=== PATIENT | male | born 1990 | race Caucasian/White ===

== ENCOUNTER 2018-04-13 15:27 | Emergency (ER) | payer OTHER ==
[~2018-04-13] VITALS: Ht 180.3 cm; Wt 88.5 kg
[2018-04-13 15:27] VITALS: BP_SYST 120
[~2018-04-13 15:27] MED LIST: D-AMPHETAMINE SALT PO; [UNRECOGNIZED DRUG - CODE] PO
--- NOTE | 2018-04-13 15:30 | NUR ---
BROUGHT BACK TO BED #3 VIA WHEELCHAIR AND PLACED IN BED. TRIAGED. REPORT GIVEN TO LEIDA
[2018-04-13] MEDS ORDERED: KETOROLAC TROMETHAMINE 60 MG/2 ML VIAL IM ONE (16:00)
--- NOTE | 2018-04-13 16:16 | NUR ---
Leah yung in ED - 04/13/18 at 1734 by JUDAH patient arrived from home with c/o 8/10 pain with movement left knee pain x 2 weeks. no other complaint or injury at this time.
--- NOTE | 2018-04-13 16:16 | NUR ---
patient arrived from home with c/o 8/10 pain with movement left knee pain x 2 weeks. no other complaint or injury at this time.
--- NOTE | 2018-04-13 16:16 | NUR ---
ER MD at bedside examining patient.
--- NOTE | 2018-04-13 16:20 | NUR ---
sent to xray
--- NOTE | 2018-04-13 16:30 | NUR ---
Leah yung in ED - 04/13/18 at 1734 by JUDAH sent to [facility]
--- NOTE | 2018-04-13 17:24 | NUR ---
Note undone in EDM - 04/13/18 at 1734 by [email or web address] Patient given written and verbal discharge instructions and verbalizes understanding. ER discussed with patient the results and treatment provided. Patient in stable condition. ID arm band removed. IV catheter removed intact and dressing applied, no active bleeding. Rx of Motrin given. Patient educated on pain management and to follow up with PMD. Pain Scale 0/10. Opportunity for questions provided and answered. Medication side effect fact sheet provided.
[2018-04-13 17:35] VITALS: BP_SYST 130
--- NOTE | 2018-04-13 17:38 | NUR ---
Patient given written and verbal discharge instructions and verbalizes understanding. ER MD discussed with patient the results and treatment provided. Patient in stable condition. ID arm band removed. IV catheter removed intact and dressing applied, no active bleeding. Rx of Motrin given. Patient educated on pain management and to follow up with PMD. Pain Scale 0/10. Opportunity for questions provided and answered. Medication side effect fact sheet provided.
== END 2018-04-13 17:21 | disposition home or self-care (01) ==
LOC: SED 15:27
DX: M25.562 Pain in left knee (principal); J45.909 Unspecified asthma, uncomplicated; F90.9 Attention-deficit hyperactivity disorder, unspecified type; Z98.890 Other specified postprocedural states
CPT/HCPCS: 29505; 73564; 96372; 99283; J1885

== ENCOUNTER 2020-09-23 05:56 | Emergency (ER) | payer MEDICAID, OTHER ==
[~2020-09-23] VITALS: Ht 180.3 cm; Wt 83.9 kg
[2020-09-23 05:56] VITALS: BP_SYST 132
[~2020-09-23 05:56] MED LIST changes: +FLUO10CA28 PO; -[UNRECOGNIZED DRUG - CODE] PO
== END 2020-09-23 06:10 ==
LOC: SED 05:56
DX: Z02.89 Encounter for other administrative examinations (principal); Z79.899 Other long term (current) drug therapy; J45.909 Unspecified asthma, uncomplicated
CPT/HCPCS: 99283